=== PATIENT | female | born 1945 | race Caucasian/White ===

== ENCOUNTER 2016-10-02 21:01 | Emergency (ER) | payer MEDICARE, OTHER ==
[2016-10-02 23:18] VITALS: BP 148/64
[2016-10-02] MEDS ORDERED: HYDROmorphone 2 MG/ML SDV IM ONE (23:18)
--- NOTE | 2016-10-03 10:35 | CR ---
INDICATION: Took a step and heard snapping sound in the heel area. RIGHT CALCANEUS: Posterior tangential and lateral views of the calcaneus revealed disorganized appearance in the area of the Achilles tendon, suggesting the possibility of Achilles tendon rupture. Findings may be on a chronic basis , since there are calcifications superior to the calcaneus in the posterior pre- Achilles tendon space. Small plantar calcaneal spur is noted. Degenerative changes are noted at the ankle mortise, minimally at the calcaneocuboid joint, to a mild to moderate degree at the talonavicular joint, and apparently also in the subtalar joint minimally. IMPRESSION: Cannot exclude Achilles tendon rupture, either acute and/or chronic. Calcific density is noted in that area, somewhat amorphous in appearance, suggesting previous soft tissue injury with dystrophic soft tissue calcification. MTDD
--- NOTE | 2016-10-03 10:45 | CR ---
INDICATION: Took a step and heard snapping sound in the heel area. RIGHT ANKLE: Three views of the right ankle were obtained and revealed dystrophic calcifications several centimeters above the calcaneus anterior to the Achilles tendon. The Achilles tendon is not delineated adequately, suggesting the possibility of rupture and/or inflammation. The calcifications seen in that area may represent dystrophic soft tissue calcification from previous injury and should be correlated clinically. A small plantar calcaneal spur is noted. There are some mild degenerative changes noted at the ankle mortise with widening of the ankle mortise laterally, suggesting lateral ligamentous injury. This should be correlated clinically. Soft tissue swelling is noted about the ankle, more prominently medially. A definite acute fracture or dislocation was not identified. Bony and/or calcific densities are noted inferior to the lateral malleolus, which may represent dystrophic soft tissue calcification from previous injury, ununited accessory ossification centers, or possibly previous chip fracture fragments that did not unite. No definite acute fracture is identified. Degenerative changes are noted at metatarsal tarsal joints. IMPRESSION: 1. Widening of the ankle mortise laterally, raising question of lateral ligamentous injury - correlate clinically. Findings could be chronic. 2. Calcific or bony densities inferior to the lateral malleolus of questionable significance, as noted above. 3. 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 4. Soft tissue swelling noted about the ankle, more prominent medially. MTDD
--- NOTE | 2016-10-05 16:27 | ER ---
DATE SEEN: 10/02/2016 TIME SEEN: The patient was seen at 2155 hours. HISTORY OF PRESENT ILLNESS: This 71-year-old woman with gout, anxiety disorder, hypertension, obesity, diabetes, depression, status post previous echo 01/22/2016 with ejection fraction of 65 and a moderate mitral valve regurgitation, grade 1 diastolic dysfunction, and also trace tricuspid regurgitation that is trivial, comes in with a previous history of cataract surgery, cataract excision with lens implant, 09/06/2016. Weight is 272 pounds. Noted right ankle pain for the past 2 weeks and this morning experienced a pop. With this, she has moderate pain in right ankle. MEDICATIONS: 1. Allopurinol 300 mg daily. 2. Ascorbic acid 1000 mg daily. 3. Calcium with vitamin D. 4. Dextran for eyes with hypromellose - artificial tears. 5. Cinnamon bark. 6. Vitamin D. 7. Lactobacillus. 8. Lasix 60 mg daily. 9. Liraglutide 1.8 mg subcu daily. 10.Zoloft 100 mg daily. 11.Metformin 1000 mg b.i.d. 12.Glipizide 5 mg b.i.d. 13.Vitamin B complex. 14.Magnesium oxide 400 mg daily. ALLERGIES: Bupropion, cortisone, and Vioxx. REVIEW OF SYSTEMS: HEENT: Denies headache. No neck stiffness or shortness of breath. CARDIORESPIRATORY: Denies shortness of breath, cough, or chest pain. No irregular heartbeat. : Denies frequency, urgency, or dysuria. GI: Denies abdominal discomfort but does have mild reflux. Denies renal stones. MUSCULOSKELETAL: Has moderate knee and hip discomfort as her weight is 272 pounds and more recently notes right ankle pain, see above. For gout, she has not had a new gout flare. ENDOCRINE: Negative. No hypothyroidism. No temperature intolerance of cold or heat. PHYSICAL EXAMINATION: VITAL SIGNS: Blood pressure 148/64, heart rate 86, respirations 18, oxygen saturation 100%, and temperature is 36.4 degrees centigrade. GENERAL: Alert woman, in mild distress, markedly obese, premorbid obesity. She has mild discomfort in her right ankle. HEENT: PERRLA intact. Pharynx without abnormality. No thickened tongue. No thyromegaly. No bruits in neck. LUNGS: Clear to auscultation without rales, rhonchi, or wheezes. HEART: S1, S2. There is no murmur that I can hear; however, it was previously documented she had a grade 1 mitral regurgitation murmur on ultrasound. ABDOMEN: Soft. No guarding. No abdominal discomfort. Bowel sounds normal. MUSCULOSKELETAL: Right lower extremity moderate tenderness. Gandhi sign is positive, which suggests partial rupture, if not complete rupture of Achilles tendon on the right side. Mild tenderness, posterior Achilles tendon, posterior lower leg. Dorsalis pedis intact. Capillary refill is decreased. No proximal fifth metatarsal tenderness. Inversion and eversion causes mild discomfort to the ankle ligaments, calcaneofibular ligaments, and also deltoid ligaments but not extensive. Minimal ankle swelling. DIAGNOSTIC STUDIES: CT not performed. X-ray did not reveal fracture of the calcaneus or ankle abnormality. Over the tibia and fibula she has old well-demarcated oval calcifications of the ankle ligaments laterally suggesting a flake fracture or calcification within the ligaments themselves secondary to the injury. ASSESSMENT: Probable Achilles partial rupture secondary to positive Gandhi sign. The patient may need an MRI. Arrangements made for an MRI and if insurance will accept it, then she probably will have it performed on October 04. OTHER DIAGNOSES: 1. Obesity. 2. Diabetes. 3. Depression. 4. Grade 1 diastolic dysfunction per echo with mitral regurgitation. 5. Hypertension. 6. Gout. 7. Anxiety disorder. /[id number] JOHNIE/FARHAD
== END 2016-10-03 00:05 | disposition home or self-care (01) ==
LOC: FB.ED 21:01
DX: M25.571 Pain in right ankle and joints of right foot (principal); F41.9 Anxiety disorder, unspecified; I51.89 Other ill-defined heart diseases; I10 Essential (primary) hypertension; E66.9 Obesity, unspecified; M10.9 Gout, unspecified; E11.9 Type 2 diabetes mellitus without complications; F32.9 Major depressive disorder, single episode, unspecified; Z79.84 Long term (current) use of oral hypoglycemic drugs; Z88.8 Allergy status to other drugs, medicaments and biological substances; Z68.42 Body mass index [BMI] 45.0-49.9, adult
CPT/HCPCS: 73610; 73650; 96372; 99283; J1170

== ENCOUNTER 2017-10-29 14:04 | Emergency (ER) | payer MEDICARE, OTHER ==
--- NOTE | 2017-10-29 14:44 | EDM.PDOC ---
ED HPI GENERAL MEDICAL PROBLEM - General Chief Complaint: Fever Stated Complaint: DEHYDRATED,LOW OXYGEN,HIGH BLOOD SUGAR Time Seen by Provider: 10/29/17 14:40 Source of Information: Reports: Patient, EMS - History of Present Illness INITIAL COMMENTS - FREE TEXT/NARRATIVE: Underwent right TKR @[facility] on 10/25/17, discharged 10/27/17. Has been lethargic and confused with temp of @100 since. Taking Oxycodone 2 tablet every 4 hours. Denies chest pain or shortness of breath. Duration: Day(s): (2) - Related Data Allergies Allergy/AdvReac Type Severity Reaction Status Date / Time bupropion [From Wellbutrin] Allergy Hives Verified 10/02/16 23:16 cortisone Allergy Hives Verified 10/02/16 23:16 rofecoxib [From Vioxx] Allergy Rash Verified 10/02/16 23:16 Home Meds: Home Meds Allopurinol 300 mg PO DAILY 11/09/15 [History] Ascorbic Acid [C-1000] 1,000 mg PO DAILY 11/09/15 [History] Calc/D3/Mag/Zn/Plastic Extrusion Operator/Raoul/[place]odell [Calcium 600 MG Plus Vit D] 1 each PO BID [History] Cholecalciferol (Vitamin D3) [Vitamin D3] 2,000 units PO DAILY 11/09/15 [History ] Cinnamon Bark [Cinnamon] 1,000 mg PO DAILY 11/09/15 [History] Dextran 70/Hypromellose/PF [Artificial Tears Drops] 1 each EYEBOTH ASDIRECTED [History] Furosemide 60 mg PO DAILY 11/09/15 [History] Lactobacillus Combination No.4 [Probiotic] 1 each PO DAILY 11/09/15 [History] Liraglutide [Victoza] 1.8 mg SUBCUT DAILY 11/09/15 [History] Magnesium Oxide [Magnesium] 400 mg PO BEDTIME 11/09/15 [History] Sertraline [Zoloft] 100 mg PO DAILY 11/09/15 [History] Vit B Cmplx 3/Fa/Vit C/Biotin [[place]-Sana Rx Tablet] 1 each PO DAILY 11/09/15 [ History] glipiZIDE [Glipizide] 5 mg PO BID 11/09/15 [History] metFORMIN [Glucophage] 1,000 mg PO BIDMEALS 11/09/15 [History] .Fish Oil 1 dose PO ASDIRECTED 10/03/16 [History] .Garlic 1 dose PO ASDIRECTED 10/03/16 [History] .Ligaplex 1 dose PO ASDIRECTED 10/03/16 [History] .P5p 1 dose PO ASDIRECTED 10/03/16 [History] .Potassium 1 dose PO ASDIRECTED 10/03/16 [History] Meloxicam 1 tab PO DAILY 10/03/16 [History] Acetaminophen 650 mg PO Q4H PRN 10/29/17 [History] Allopurinol [Zyloprim] 300 mg PO DAILY 10/29/17 [History] Aspirin [Ecotrin] 325 mg PO DAILY 10/29/17 [History] Cinnamon Bark [Cinnamon] 1,000 mg PO DAILY 10/29/17 [History] Furosemide 20 mg PO TID 10/29/17 [History] glyBURIDE [Glyburide] 5 mg PO TID 10/29/17 [History] oxyCODONE 5 - 10 mg PO Q4H PRN 10/29/17 [History] Past Medical History HEENT History: Reports: Cataract, Impaired Vision Cardiovascular History: Reports: Heart Murmur, Hypertension. Denies: CAD, [place] Respiratory History: Reports: Bronchitis, Recurrent, Pneumonia, Recurrent Gastrointestinal History: Reports: GERD Musculoskeletal History: Reports: Arthritis Psychiatric History: Reports: Anxiety Endocrine/Metabolic History: Reports: Diabetes, Type II, Obesity/BMI 30+ - Infectious Disease History Infectious Disease History: Reports: Shingles Social & Family History - Tobacco Use Smoking Status *Q: Never Smoker - Caffeine Use Caffeine Use: Reports: Coffee - Alcohol Use Alcohol Use History: No ED ROS GENERAL - Review of Systems Review Of Systems: See Below Constitutional: Reports: Fever HEENT: Reports: No Symptoms Respiratory: Reports: No Symptoms Cardiovascular: Reports: No Symptoms Endocrine: Reports: Fatigue GI/Abdominal: Reports: No Symptoms : Reports: No Symptoms Musculoskeletal: Reports: No Symptoms Skin: Reports: No Symptoms Neurological: Reports: Confusion Psychiatric: Reports: No Symptoms Hematologic/Lymphatic: Reports: No Symptoms Immunologic: Reports: No Symptoms ED EXAM, GENERAL - Physical Exam Exam: See Below Exam Limited By: No Limitations General Appearance: Alert, WD/WN, No Apparent Distress Eye Exam: Bilateral Eye: EOMI, PERRL Ears: Normal External Exam Nose: Normal Inspection Throat/Mouth: No Airway Compromise, Other (mucosa slightly dry) Head: Atraumatic, Normocephalic Neck: Supple Respiratory/Chest: No Respiratory Distress, Lungs Clear, Normal Breath Sounds Cardiovascular: Regular Rate, Rhythm, Systolic Murmur (3/6) Peripheral Pulses: 2+: Dorsalis Pedis (R) GI/Abdominal: Normal Bowel Sounds, Soft, Tender (mild RUQ) Rectal (Female) Exam: Deferred Extremities: Other (ecchymosis to right knee, incision intact, no erythema, no purulent discharge) Neurological: Alert, Oriented, CN II-XII Intact, Normal Cognition, No Motor/ Sensory Deficits Psychiatric: Normal Affect, Normal Mood Skin Exam: Warm, Dry, Intact EKG INTERPRETATION EKG Date: 10/29/17 Time: 14:55 Rhythm: NSR Rate (Beats/Min): 97 [place]: Normal P-Wave: Present QRS: Other (LPFB) ST-T: Normal QT: Normal Course - Vital Signs Last Recorded V/S: Last Vital Signs Temp 37.8 C 10/29/17 14:44 Pulse 101 H 10/29/17 14:44 Resp 20 10/29/17 14:44 BP 119/65 10/29/17 14:44 Pulse Ox 90 L 10/29/17 15:02 - Orders/Labs/Meds Orders: Active Orders 24 hr Category Date Time Status Oxygen Therapy Adult [Oxygen Therapy, ED] [RC] Care 10/29/17 14:46 Active ASDIRECTED Abdomen Pelvis w Cont [CT] Stat Exams 10/29/17 16:06 Ordered Ang Chest [CT] Stat Exams 10/29/17 16:05 Taken CXR [Chest 1V Frontal] [CR] Stat Exams 10/29/17 14:38 Taken Head wo Cont [CT] Stat Exams 10/29/17 14:39 Taken CULTURE BLOOD [BC] Urgent Lab 10/29/17 14:40 Received CULTURE BLOOD [BC] Urgent Lab 10/29/17 14:46 Received UA W/MICROSCOPIC [URIN] Stat Lab 10/29/17 16:12 Ordered Heparin Sodium/0.45% NaCl [Heparin 25,000 Units in 1/2 Med 10/29/17 16:30 Active NS 500 ML] 500 ml IV ASDIRECTED Sodium Chloride 0.9% [Saline Flush] Med 10/29/17 14:45 Active 10 ml FLUSH ASDIRECTED PRN Vancomycin 1,000 mg Med 10/29/17 16:10 Active Sodium Chloride 0.9% [Normal Saline] 250 ml IV ONETIME Blood Culture x2 Reflex Set [OM.PC] Urgent Oth 10/29/17 14:36 Ordered Saline Lock Insert [OM.PC] Routine Oth 10/29/17 14:45 Ordered EKG 12 Lead [EK] Stat Ther 10/29/17 14:36 Ordered Medication Orders Heparin Sodium/Sodium Chloride (Heparin 25,000 Units In 1/2 Ns 500 Ml) 500 mls @ 20 mls/hr IV ASDIRECTED MARK; Protocol Last Admin: 10/29/17 16:57 Dose: 20 mls/hr Vancomycin HCl 1,000 mg/ (Sodium Chloride) 250 mls @ 167 mls/hr IV ONETIME ONE Stop: 10/29/17 17:39 Sodium Chloride (Saline Flush) 10 ml FLUSH ASDIRECTED PRN PRN Reason: Keep Vein Open Labs: Laboratory Tests 10/29/17 10/29/17 10/29/17 Range/Units 14:40 14:40 14:40 WBC 9.8 (4.5-12.0) X10-3/uL RBC 3.09 L (3.23-5.20) x10(6)uL Hgb 9.5 L (11.5-15.5) g/dL Hct 28.1 L (30.0-51.3) % MCV 91.1 (80-96) fL MCH 30.7 (27.7-33.6) pg MCHC 33.7 (32.2-35.4) g/dL RDW 14.5 (11.5-15.5) % Plt Count 291 (125-369) X10(3)uL MPV 8.1 (7.4-10.4) fL Neut % (Auto) 78.6 (46-82) % Lymph % (Auto) 12.7 L (13-37) % [place] % (Auto) 8.2 (4-12) % Eos % (Auto) 0 L (1.0-5.0) % Baso % (Auto) 0 (0-2) % Neut # (Auto) 7.8 (1.6-8.3) # Lymph # (Auto) 1.2 (0.6-5.0) # [place] # (Auto) 0.8 (0.0-1.3) # Eos # (Auto) 0.0 (0.0-0.8) # Baso # (Auto) 0.0 (0.0-0.2) # PT 10.8 (8.7-11.1) INR 1.11 (0.89-1.13) APTT (24.4-33.2) SECONDS D-Dimer, Quantitative 7.15 H (0.0-0.59) mg/LFEU Sodium (135-145) mmol/L Potassium (3.5-5.3) mmol/L Chloride (100-110) mmol/L Carbon Dioxide (21-32) mmol/L BUN (7-18) mg/dL Creatinine (0.55-1.02) mg/dL Est Cr Clr Drug Dosing Estimated GFR (MDRD) (>60) BUN/Creatinine Ratio (9-20) Glucose (80-116) mg/dL Lactic Acid (0.4-2.2) mmol/L Calcium (8.6-10.2) mg/dL Total Bilirubin (0.1-1.3) mg/dL AST (5-25) IU/L ALT (12-36) U/L Alkaline Phosphatase (56-112) IU/L Troponin I (<0.017-0.056) ng/mL Total Protein (6.0-8.0) g/dL Albumin (3.2-4.6) g/dL Globulin g/dL Albumin/Globulin Ratio Acetaminophen (10-30) ug/mL 10/29/17 10/29/17 10/29/17 Range/Units 14:40 14:40 14:40 WBC (4.5-12.0) X10-3/uL RBC (3.23-5.20) x10(6)uL Hgb (11.5-15.5) g/dL Hct (30.0-51.3) % MCV (80-96) fL MCH (27.7-33.6) pg MCHC (32.2-35.4) g/dL RDW (11.5-15.5) % Plt Count (125-369) X10(3)uL MPV (7.4-10.4) fL Neut % (Auto) (46-82) % Lymph % (Auto) (13-37) % [place] % (Auto) (4-12) % Eos % (Auto) (1.0-5.0) % Baso % (Auto) (0-2) % Neut # (Auto) (1.6-8.3) # Lymph # (Auto) (0.6-5.0) # [place] # (Auto) (0.0-1.3) # Eos # (Auto) (0.0-0.8) # Baso # (Auto) (0.0-0.2) # PT (8.7-11.1) INR (0.89-1.13) APTT (24.4-33.2) SECONDS D-Dimer, Quantitative (0.0-0.59) mg/LFEU Sodium 132 L (135-145) mmol/L Potassium 4.6 (3.5-5.3) mmol/L Chloride 97 L (100-110) mmol/L Carbon Dioxide 26 (21-32) mmol/L BUN 33 H (7-18) mg/dL Creatinine 1.3 H (0.55-1.02) mg/dL Est Cr Clr Drug Dosing TNP Estimated GFR (MDRD) 40 L (>60) BUN/Creatinine Ratio 25.4 H (9-20) Glucose 271 H (80-116) mg/dL Lactic Acid 1.3 (0.4-2.2) mmol/L Calcium 8.8 (8.6-10.2) mg/dL Total Bilirubin 0.9 (0.1-1.3) mg/dL AST 349 H* (5-25) IU/L ALT 167 H* (12-36) U/L Alkaline Phosphatase 80 (56-112) IU/L Troponin I 0.362 H* (<0.017-0.056) ng/mL Total Protein 7.3 (6.0-8.0) g/dL Albumin 2.6 L (3.2-4.6) g/dL Globulin 4.7 g/dL Albumin/Globulin Ratio 0.6 Acetaminophen (10-30) ug/mL 09/16/18 09/16/18 Range/Units 14:40 14:40 WBC (4.5-12.0) X10-3/uL RBC (3.23-5.20) x10(6)uL Hgb (11.5-15.5) g/dL Hct (30.0-51.3) % MCV (80-96) fL MCH (27.7-33.6) pg MCHC (32.2-35.4) g/dL RDW (11.5-15.5) % Plt Count (125-369) X10(3)uL MPV (7.4-10.4) fL Neut % (Auto) (46-82) % Lymph % (Auto) (13-37) % [place] % (Auto) (4-12) % Eos % (Auto) (1.0-5.0) % Baso % (Auto) (0-2) % Neut # (Auto) (1.6-8.3) # Lymph # (Auto) (0.6-5.0) # [place] # (Auto) (0.0-1.3) # Eos # (Auto) (0.0-0.8) # Baso # (Auto) (0.0-0.2) # PT (8.7-11.1) INR (0.89-1.13) APTT 25.4 (24.4-33.2) SECONDS D-Dimer, Quantitative (0.0-0.59) mg/LFEU Sodium (135-145) mmol/L Potassium (3.5-5.3) mmol/L Chloride (100-110) mmol/L Carbon Dioxide (21-32) mmol/L BUN (7-18) mg/dL Creatinine (0.55-1.02) mg/dL Est Cr Clr Drug Dosing Estimated GFR (MDRD) (>60) BUN/Creatinine Ratio (9-20) Glucose (80-116) mg/dL Lactic Acid (0.4-2.2) mmol/L Calcium (8.6-10.2) mg/dL Total Bilirubin (0.1-1.3) mg/dL AST (5-25) IU/L ALT (12-36) U/L Alkaline Phosphatase (56-112) IU/L Troponin I (<0.017-0.056) ng/mL Total Protein (6.0-8.0) g/dL Albumin (3.2-4.6) g/dL Globulin g/dL Albumin/Globulin Ratio Acetaminophen < 2 L (10-30) ug/mL Meds: Medications Generic Name Dose Route Start Last Admin Trade Name Marian PRN Reason Stop Dose Admin Heparin Sodium/Sodium Chloride 500 mls @ 20 mls/hr 10/29/17 16:30 10/29/17 16 :57 Heparin 25,000 Units In 1/2 Ns 500 Ml IV 20 mls/hr ASDIRECTED MARK Administration Protocol Vancomycin HCl 1,000 mg/ 250 mls @ 167 mls/hr 10/29/17 16:10 Sodium Chloride IV 10/29/17 17:39 ONETIME ONE Sodium Chloride 10 ml 10/29/17 14:45 Saline Flush FLUSH ASDIRECTED PRN Keep Vein Open Discontinued Medications Generic Name Dose Route Start Last Admin Trade Name Marian PRN Reason Stop Dose Admin Aspirin 324 mg 10/29/17 15:58 10/29/17 17:01 Aspirin PO 10/29/17 15:59 324 mg ONETIME ONE Administration Heparin Sodium (Porcine) 4,000 units 10/29/17 16:01 10/29/17 16:55 Heparin Sodium IVPUSH 10/29/17 16:02 4,000 units ONETIME ONE Administration Heparin Sodium (Porcine) 4,000 units 10/29/17 16:30 10/29/17 17:01 Heparin Sodium IVPUSH 10/29/17 16:31 Not Given ONETIME ONE Sodium Chloride 1,000 mls @ 999 mls/hr 10/29/17 14:45 Normal Saline IV 10/29/17 15:45 .BOLUS ONE Ceftriaxone Sodium 2 gm/ 100 mls @ 200 mls/hr 10/29/17 16:10 Sodium Chloride IVPUSH 10/29/17 16:39 ONETIME ONE Iopamidol 100 ml 10/29/17 16:13 10/29/17 16:31 Isovue-370 (76%) IV 10/29/17 16:14 100 ml . DIRECTED ONE Administration Vancomycin HCl Confirm 10/29/17 17:08 Vancomycin Administered 10/29/17 17:09 Dose 1,000 mg .ROUTE .STK-MED ONE - Radiology Interpretation Free Text/Narrative:: Head CT: NAD CXR: RLL infiltrate CTA Chest/Abd/Pelvis: No PE. RUL and RML infiltrates. Small right sided pleural effustion. Pulmonary Hypertension. Gallstones with distended gallbladder, trace amount port hepatis and perhepatic fluid. Splenomegaly with small area of splenic infarction. - Re-Assessments/Exams Free Text/Narrative Re-Assessment/Exam: 10/29/17 17:36 BP 134/70, HR 91, RR 20, Sa02 97% on 4L 02 Dr. Diallo [email or web address] accepts patient for transfer. Departure - Departure Time of Disposition: 17:35 Disposition: DC/Tfer to SNF 03 Condition: Serious Clinical Impression: Non-ST elevated myocardial infarction, Hypoxemia, Gallstones, Liver enzyme elevation Pneumonia Qualifiers: Pneumonia type: due to unspecified organism Laterality: right Lung location: middle lobe of lung Qualified Code(s): J18.1 - Lobar pneumonia, unspecified organism - Discharge Information *PRESCRIPTION DRUG MONITORING PROGRAM REVIEWED*: No *COPY OF PRESCRIPTION DRUG MONITORING REPORT IN PATIENT KASSI: Not Applicable Referrals: Silas Bangura MD [Primary Care Provider] - Forms: ED Department Discharge - My Orders Last 24 Hours: My Active Orders 10/29/17 14:36 Blood Culture x2 Reflex Set [OM.PC] Urgent EKG 12 Lead [EK] Stat 10/29/17 14:38 CXR [Chest 1V Frontal] [CR] Stat 10/29/17 14:39 Head wo Cont [CT] Stat 10/29/17 14:40 CULTURE BLOOD [BC] Urgent 10/29/17 14:45 Sodium Chloride 0.9% [Saline Flush] 10 ml FLUSH ASDIRECTED PRN Saline Lock Insert [OM.PC] Routine 10/29/17 14:46 Oxygen Therapy Adult [Oxygen Therapy, ED] [RC] ASDIRECTED CULTURE BLOOD [BC] Urgent 10/29/17 16:05 Ang Chest [CT] Stat 10/29/17 16:06 Abdomen Pelvis w Cont [CT] Stat 10/29/17 16:10 Vancomycin 1,000 mg Sodium Chloride 0.9% [Normal Saline] 250 ml IV ONETIME 10/29/17 16:12 UA W/MICROSCOPIC [URIN] Stat 10/29/17 16:30 Heparin Sodium/0.45% NaCl [Heparin 25,000 Units in 1/2 NS 500 ML] 500 ml IV ASDIRECTED - Assessment/Plan Last 24 Hours: My Active Orders 10/29/17 14:36 Blood Culture x2 Reflex Set [OM.PC] Urgent EKG 12 Lead [EK] Stat 10/29/17 14:38 CXR [Chest 1V Frontal] [CR] Stat 10/29/17 14:39 Head wo Cont [CT] Stat 10/29/17 14:40 CULTURE BLOOD [BC] Urgent 10/29/17 14:45 Sodium Chloride 0.9% [Saline Flush] 10 ml FLUSH ASDIRECTED PRN Saline Lock Insert [OM.PC] Routine 10/29/17 14:46 Oxygen Therapy Adult [Oxygen Therapy, ED] [RC] ASDIRECTED CULTURE BLOOD [BC] Urgent 10/29/17 16:05 Ang Chest [CT] Stat 10/29/17 16:06 Abdomen Pelvis w Cont [CT] Stat 10/29/17 16:10 Vancomycin 1,000 mg Sodium Chloride 0.9% [Normal Saline] 250 ml IV ONETIME 10/29/17 16:12 UA W/MICROSCOPIC [URIN] Stat 10/29/17 16:30 Heparin Sodium/0.45% NaCl [Heparin 25,000 Units in 1/2 NS 500 ML] 500 ml IV ASDIRECTED
[2017-10-29] MEDS ORDERED: Sodium Chloride 0.9% 10 ML Syringe FLUSH PRN (14:45)
[2017-10-29] MEDS ORDERED: Sodium Chloride 0.9% 1,000 ML IV ONE (14:45)
[2017-10-29] MEDS ORDERED: Aspirin 81 MG Tab.Chew PO ONE (15:58)
[2017-10-29] MEDS ORDERED: Heparin Sodium 5,000 Units/ML Vial IVPUSH ONE ×2 (16:01→16:30)
[2017-10-29] MEDS ORDERED: cefTRIAXone 2 GM in Sodium Chloride 0.9% 100 ML IVPUSH ONE (16:10)
[2017-10-29] MEDS ORDERED: Iopamidol 755 Mg/ML 100 ML Bottle IV ONE (16:13)
[2017-10-29] MEDS ORDERED: Heparin Sodium/0.45% NaCl 500 ML IV SCH (16:30)
[2017-10-29] MEDS ORDERED: Vancomycin 1,000 MG SDV ONE (17:08)
[2017-10-29] MEDS ORDERED: Sodium Chloride 0.9% 1,000 ML IV SCH (17:45)
[2017-10-29] MEDS ORDERED: cefTRIAXone 2 GM Vial IV ONE (18:00)
[2017-10-29 21:12] VITALS: BP 134/70
== END 2017-10-29 19:35 ==
LOC: FB.ED 14:04
DX: I21.4 Non-ST elevation (NSTEMI) myocardial infarction (principal); J18.9 Pneumonia, unspecified organism; R09.02 Hypoxemia; K80.80 Other cholelithiasis without obstruction; E11.9 Type 2 diabetes mellitus without complications; I10 Essential (primary) hypertension; E66.9 Obesity, unspecified; Z88.8 Allergy status to other drugs, medicaments and biological substances; Z79.899 Other long term (current) drug therapy
CPT/HCPCS: 36415; 70450; 71045; 71275; 74177; 80053; 81001; 82962; 83605; 84484; 85025; 85379; 85610; 85730; 87040; 93005; 96361; 96365; 96366; 96375; 96376; 99285; A9270; G0480; J0696; J1644; J3370; J7030; J7050; Q9967